=== PATIENT | female | born 1995 | race African-American/Black ===

== ENCOUNTER 2017-11-12 17:49 | Emergency (ER) | payer BC ==
[2017-11-12] MEDS: HYDROcodone/APAP 5/325MG 1 TAB TABLET PO (18:24)
[2017-11-12] MEDS: DIPHTH,PERTUSS(ACELL),TET TOX 0.5 ML DISP.SYRIN. VAX IM (18:42)
== END 2017-11-12 19:13 | disposition home or self-care (01) ==
LOC: ER 17:49
DX: S61.452A Open bite of left hand, initial encounter (principal); S60.511A Abrasion of right hand, initial encounter; Z88.0 Allergy status to penicillin; W54.0XXA Bitten by dog, initial encounter; Y93.89 Activity, other specified; Y99.8 Other external cause status; Y92.89 Other specified places as the place of occurrence of the external cause
CPT/HCPCS: 90471; 90715; 99283-25